=== PATIENT | female | born 1980 | race Caucasian/White ===

== ENCOUNTER 2020-07-05 01:27 | Emergency (ER) | payer SELFPAY ==
[2020-07-05] MEDS ORDERED: ACETAMINOPHEN 325 MG TABLET PO ONE (01:56)
[2020-07-05 02:23] LABS: APPEARANCE,URINE SLIGHTLY-CLOUDY; BILIRUBIN,URINE NEGATIVE (NEGATIVE); COLOR,URINE YELLOW; GLUCOSE, URINE NEGATIVE (NEGATIVE); KETONES,URINE NEGATIVE (NEGATIVE); LEUKOCYTE ESTERASE,URINE TRACE (NEGATIVE); NITRITE,URINE NEGATIVE (NEGATIVE); PROTEIN,URINE 30 mg/dL (NEGATIVE); URINE SPECIFIC GRAVITY 1.023
[2020-07-05] MEDS ORDERED: MORPHINE SULFATE 10 MG/ML INJ IV ONE (03:25)
[2020-07-05] MEDS ORDERED: ONDANSETRON HCL INJ/PF 4 MG/2 ML SDV IV ONE (03:25)
--- NOTE | 2020-07-05 03:25 | ER Document Report ---
ED GI/ - General Chief Complaint: Flank Pain Stated Complaint: FLANK PAIN Time Seen by Provider: 07/05/20 03:04 Notes: Patient is a 39-year-old female that comes to the emergency department for chief complaint of lower abdominal pain that radiates around to her lower back on both sides. She states that this started about 2 days ago but has started becoming intermittently worse and occasionally very sharp. She reports intermittent nausea but denies vomiting. She denies dysuria. She denies vaginal bleeding or discharge. She denies fever or chills. She states she was seen by urgent care and started taking Macrobid but symptoms have worsened. She denies any daily medications or diagnosed medical history, she has had a tubal ligation. She states she is not sexually active. - Related Data Allergies/Adverse Reactions: No Known Allergies Allergy (Verified 07/05/20 01:39) Past Medical History - General Information source: Patient - Social History Smoking Status: Never Smoker Chew tobacco use (# tins/day): Yes Frequency of alcohol use: None Lives with: Family Family History: Reviewed & Not Pertinent Patient has homicidal ideation: No Past Surgical History: Reports: Hx Tubal Ligation - Immunizations Hx Diphtheria, Pertussis, Tetanus Vaccination: Yes Review of Systems - Review of Systems Constitutional: No symptoms reported EENT: No symptoms reported Cardiovascular: No symptoms reported Respiratory: No symptoms reported Gastrointestinal: See HPI Genitourinary: See HPI Female Genitourinary: See HPI Musculoskeletal: No symptoms reported Skin: No symptoms reported Hematologic/Lymphatic: No symptoms reported Neurological/Psychological: No symptoms reported Physical Exam - Vital signs Vitals: Temp Pulse Resp BP Pulse Ox 98.3 F 63 18 125/71 100 07/05/20 01:31 07/05/20 01:31 07/05/20 01:31 07/05/20 01:31 07/05/20 01:31 - Notes Notes: GENERAL: Alert, interacts well. No acute distress. HEAD: Normocephalic, atraumatic. EYES: Pupils equal, round, and reactive to light. Extraocular movements intact. ENT: Oral mucosa moist, tongue midline. Oropharynx unremarkable. Airway patent. LUNGS: Clear to auscultation bilaterally, no wheezes, rales, or rhonchi. No respiratory distress. Non-tender chest wall. HEART: Regular rate and rhythm. No murmur ABDOMEN: There is general tenderness in the lower abdomen with some wincing but no overt guarding or rigidity. No distention. GENITOURINARY: Some vaginal discharge and also some vaginal bleeding. No noted cervical motion tenderness, no other concerning findings. Exam performed with Shanti guerra RN at bedside. EXTREMITIES: Moves all 4 extremities spontaneously. No edema, normal radial and dorsalis pedis pulses bilaterally. No cyanosis. BACK: no cervical, thoracic, lumbar midline tenderness. No saddle anesthesia, normal distal neurovascular exam. Moves all extremities in full range of motion. NEUROLOGICAL: Alert and oriented x3. Normal speech. Cranial nerves II through XII grossly intact. Strength 5/5 in all extremities. PSYCH: Normal affect, normal mood. SKIN: Warm, dry, normal turgor. No rashes or lesions noted. Course - Re-evaluation Re-evalutation: Patient reporting hematuria and bilateral lower abdominal pain. She also reports flank pain. Patient peers uncomfortable on initial evaluation but she is not in severe distress. CBC, chemistry unremarkable. Urine nonspecific with a few white blood cells and red blood cells as well. I discussed with patient possibility of pelvic infection but she states she has not been sexually active and she has no concerns of this. Ultrasounds performed initially and reads were completely unremarkable. I discussed with patient again, because of her hematuria, lower abdominal pain, and flank pain along with initially very sharp pain decision was made to proceed with CAT scan. This additionally was completely unremarkable. After I discussed all these findings with patient patient now tells me that a couple of months ago she actually was sexually active and that she is concerned maybe this is the problem. Pelvic exam was then performed and shows some d ischarge and bleeding. I suspect the blood was actually from the pelvic bleeding not from the urine now, wet mount shows 4+ bacteria and 4+ white blood cells along with some squamous epithelials but no trichomonas, gonorrhea and chlamydia negative. Patient was treated with antibiotics for pelvic infection, discussed primary care follow-up and return precautions. Patient stated understanding and agreement, stable and well-appearing at time of discharge. - Vital Signs Vital signs: Temp Pulse Resp BP Pulse Ox 97.8 F 61 18 96/57 L 98 07/05/20 08:46 07/05/20 08:46 07/05/20 01:31 07/05/20 08:46 07/05/20 08:46 - Laboratory Result Diagrams: 07/05/20 03:21 07/05/20 03:21 Laboratory results interpreted by me: 07/05/20 07/05/20 07/05/20 01:54 03:21 03:21 RBC 3.70 L Hgb 11.8 L Hct 34.5 L Band Neutrophils % 1 L Chloride 109 H Total Protein 6.2 L Urine Protein 30 H Urine Blood LARGE H Urine Urobilinogen 2.0 H Ur Leukocyte Esterase TRACE H Discharge - Discharge Clinical Impression: Lower abdominal pain, Pelvic pain, Flank pain Condition: Stable Disposition: HOME, SELF-CARE Additional Instructions: Your evaluation indicates a pelvic infection, no other concerning findings are seen on imaging with ultrasound of the pelvis, CAT scan of the abdomen and pelvis, and laboratory work-up. Complete treatment by taking Flagyl at home. Follow-up with primary care for additional evaluation management. Return if you worsen including vomiting, fever, severe worsening pain, or any other concerning symptoms. Prescriptions: Metronidazole [Flagyl 500 mg Tablet] 500 mg PO BID 7 Days #14 tablet Forms: Return to Work
[2020-07-05 03:43] LABS: HEMATOCRIT 34.5 % (36.0-47.0); HEMOGLOBIN 11.8 g/dL (12.0-15.5); MEAN CORPUSCULAR HEMOGLOBIN 31.9 pg (27.0-33.4); MEAN CORPUSCULAR HGB CONC 34.2 g/dL (32.0-36.0); MEAN CORPUSCULAR VOLUME 93 fl (80-97); PLATELET COUNT 197 10^3/uL (150-450); WHITE BLOOD COUNT 8.7 10^3/uL (4.0-10.5)
[2020-07-05 04:03] LABS: ABSOLUTE LYMPHOCYTES# (MANUAL) 1.7 10^3/uL (0.5-4.7); ABSOLUTE MONOCYTES # (MANUAL) 0.3 10^3/uL (0.1-1.4); BAND NEUTROPHILS % (MANUAL) 1 % (3-5); BASOPHILS % (MANUAL) 0 % (0-2); EOSINOPHILS % (MANUAL) 0 % (0-6); LYMPHOCYTES % (MANUAL) 19 % (13-45); MONOCYTES % (MANUAL) 4 % (3-13); PLATELET COMMENT ADEQUATE; RBC MORPHOLOGY COMMENT NORMO-CYTIC/CHROMIC; SEGMENTED NEUTROPHILS % (MAN) 76 % (42-78); TOTAL CELLS COUNTED 100
[2020-07-05 04:13] LABS: ALBUMIN 3.6 g/dL (3.5-5.0); ALKALINE PHOSPHATASE 41 U/L (38-126); ANION GAP 8 (5-19); ASPARTATE AMINO TRANSFERASE 16 U/L (14-36); BILIRUBIN,DIRECT 0.1 mg/dL (0.0-0.4); BILIRUBIN,TOTAL 0.5 mg/dL (0.2-1.3); BLOOD UREA NITROGEN 19 mg/dL (7-20); CARBON DIOXIDE 22 mmol/L (22-30); CHLORIDE 109 mmol/L (98-107); GLUCOSE 99 mg/dL (75-110); POTASSIUM 4.3 mmol/L (3.6-5.0); TOTAL PROTEIN 6.2 g/dL (6.3-8.2)
--- NOTE | 2020-07-05 04:21 | RADIOLOGY REPORT (SQ) ---
EXAM DESCRIPTION: US RETROPERITONEUM LIMITED COMPLETED DATE/TME: 07/05/2020 03:11 CLINICAL HISTORY: 39 years, Female, flank pain COMPARISON: None. TECHNIQUE: Transverse and longitudinal sonographic images of the kidneys LIMITATIONS: None. FINDINGS: Right kidney measures 12.3 x 3.8 x 5.1 cm, the left 12.1 x 5.0 x 5.8 cm. No renal calculus, mass, or hydronephrosis. No perinephric fluid collection. The cortical medullary differentiation is preserved. Urinary bladder is incompletely distended IMPRESSION: Unremarkable appearance to the kidneys bilaterally copyright 2011 [employer]- All Rights Reserved
--- NOTE | 2020-07-05 04:22 | RADIOLOGY REPORT (SQ) ---
Ultrasound of the pelvis: 07/05/2020 3:19 AM CDT HISTORY: 39-year-old patient with pelvic pain. TECHNIQUE: Multiple grayscale and color Doppler images of the pelvis were obtained transvaginally. COMPARISON: None available FINDINGS: The uterus measures 9.7 x 5.2 x 6.0 cm. The endometrium measures 10-11 mm in thickness. No myometrial mass is seen. No free intraperitoneal fluid is seen within the posterior cul-de-sac. The right ovary measures 3.2 x 1.6 x 1.5 cm. The left ovary measures 3.5 x 1.8 x 2.1 cm. Arterial waveforms were obtained from both ovaries. IMPRESSION: No sonographic abnormality is seen within the pelvis.
--- NOTE | 2020-07-05 05:20 | RADIOLOGY REPORT (SQ) ---
EXAM DESCRIPTION: CT ABDOMEN PELVIS WITHOUT IV CONTRAST COMPLETED DATE/TME: 07/05/2020 04:49 CLINICAL HISTORY: flank pain, hematuria COMPARISON: None Available. TECHNIQUE: CT of the abdomen and pelvis without IV contrast. Evaluation of the solid organs and vasculature is suboptimal due to lack of IV contrast. FINDINGS: Lung Bases: Minimal dependent atelectasis. Bones: No destructive bone lesions identified. Abdomen: Liver: The liver has normal size and density. Gallbladder: No calcified gallstones. Spleen, Pancreas, and Adrenal Glands: The spleen and pancreas are unremarkable. Bilateral lipid rich adrenal adenomas. No follow-up imaging recommended. Kidneys: The kidneys have normal size without evidence of hydronephrosis. No obstructing ureteral calculi. Vasculature: Aortoiliac atherosclerosis. IVC is unremarkable. Stomach: The stomach and duodenum have normal course. Other: No free intraperitoneal air. No free fluid or lymphadenopathy. Pelvis: Bladder: Urinary bladder is unremarkable. Bowel: No dilated loops of large or small bowel. Appendix: Normal appendix. Pelvis: Uterus is not enlarged. IMPRESSION: 1. No acute inflammatory or obstructive process identified. This exam was performed according to our departmental dose-optimization program, which includes automated exposure control, adjustment of the mA and/or kV according to patient size and/or use of iterative reconstruction technique.
[2020-07-05 06:48] LABS: BACTERIA (WET MOUNT) 4+ BACTERIA SEEN; EPITHELIALS (WET MOUNT) 3+ EPITHELIALS SEEN; RBCS (WET MOUNT) 4+ RBCS SEEN; T.VAGINALIS (WET MOUNT) NO TRICHOMONAS SEEN; WBCS (WET MOUNT) 4+ WBCS SEEN; YEAST (WET MOUNT) NO YEAST SEEN
[2020-07-05] MEDS ORDERED: AZITHROMYCIN 250 MG TABLET PO ONE (06:55)
[2020-07-05] MEDS ORDERED: CEFTRIAXONE INJ 250 MG VIAL IV ONE (06:55)
[2020-07-05 08:17] LABS: CHLAM PCR NOT DETECTED (NOT DETECT)
[2020-07-05 08:47] VITALS: BP 96/57
== END 2020-07-05 08:49 | disposition home or self-care (01) ==
LOC: ER 01:27
DX: N73.9 Female pelvic inflammatory disease, unspecified (principal); R10.2 Pelvic and perineal pain; R10.9 Unspecified abdominal pain; R11.0 Nausea; N93.9 Abnormal uterine and vaginal bleeding, unspecified; Z98.51 Tubal ligation status
CPT/HCPCS: 99285; 96375; 96365; 36415; 87210; 85025; 81025; 80053; 81001; 87491; 87591; 76775; 76830; 93976; 74176; J2270; J2405; J0696